=== PATIENT | male | born 1985 | race African-American/Black ===

== ENCOUNTER 2024-02-26 10:02 | Emergency (ER) | payer MEDICAID, SELFPAY ==
--- NOTE | 2024-02-26 10:08 | ECG_ITS ---
Test Reason : chest pain Blood Pressure : / mmHG Vent. Rate : 054 BPM Atrial Rate : 054 BPM P-R Int : 138 ms QRS Dur : 084 ms QT Int : 414 ms P-R-T Axes : 069 047 050 degrees QTc Int : 392 ms Sinus bradycardia Otherwise normal ECG No previous ECGs available Referred By: Generic ED Physician Electronically Signed By:VICKY NUÑEZ
[2024-02-26 10:19] VITALS: BP 135/91; PULSE 61; RESP 16; TEMP 36.7; O2SAT 98; BMI 26.2
[2024-02-26 11:09] LABS: MANUAL DIFF FLAG NO
[2024-02-26 11:12] LABS: Basophils Percent Auto 0.6 % (0-2); Eosinophils Percent Auto 0.1 % (0-4); Hematocrit 39.6 % (42.0-52.0); Hemoglobin 14.7 g/dl (14.0-18.0); Imm Gran Abs Auto 0.01 X10*3/uL (0.00-0.03); Imm Gran Pct Auto 0.1 % (0.0-0.4); Lymphocytes Absolute Auto 1.3 X10*3/uL (1.2-4.9); Lymphocytes Percent Auto 18.1 % (20-40); Mean Corpuscular HGB Conc 37.1 g/dl (31.0-36.0); Mean Corpuscular Hemoglobin 29.5 pg (27.0-33.0); Mean Corpuscular Volume 79.5 fL (80.0-98.0); Mean Platelet Volume 9.7 fL (9.4-12.4); Monocytes Absolute Auto 0.4 X10*3/uL (0.1-1.2); Monocytes Percent Auto 5.9 % (2-11); Neutrophils Absolute Auto 5.3 x10*3/uL (2.0-8.3); Neutrophils Percent Auto 75.2 % (45-73); Platelet Count 212 X10*3/uL (160-400); Red Blood Count 4.98 X10*6/uL (4.60-5.80); Red Cell Distribution Width 13.2 % (11.0-16.0)
--- NOTE | 2024-02-26 11:19 | ED.CHESTPAIN ---
HPI - Chest Pain General Chief Complaint: Chest Pain Stated Complaint: abd pain-cp Time Seen by Provider: 02/26/24 11:16 Source: patient Mode of arrival: ambulatory Limitations: no limitations History of Present Illness ED Provider: Collin SOTO narrative: Patient is a 38-year-old male with history of alcohol use disorder, asthma presenting to the emergency department requesting assistance with detox from alcohol. States that he had been sober for 120 days, but began drinking alcohol daily around 1-1.5 weeks ago. Reports he was recently at [facility] rehab and would like to return there. Denies history of withdrawal seizures. Last drink was a nip around 9am. States has regularly been drinking 1-2 sleeves of nips daily. States he currently has sweats/chills but denies any other complaints. Denies any chest or abdominal pain. Denies other drug use. Denies any falls or other recent trauma. Denies SI or HI. MD complaint: other Treatment prior to arrival: none Related Data Allergies Allergy/AdvReac Type Severity Reaction Status Date / Time No Known Allergies Allergy Verified 02/26/24 10:21 Review of Systems Review of Systems: As per hPI. Yes all other systems are reviewed and are negative Constitutional: Constitutional: Reports as per HPI [facility] Social History Social History Alcohol intake: former Smoked in Last 30 Days: Yes Use of substances other than those prescribed or required for medical reasons: Yes Substance Use Type: Marijuana Substance Use Frequency: Occasionally Advance Directives: No Advance Directives Information Provided: No Do you have a plan to hurt others: No Plan Physical Exam Vital Signs: Vital Signs: Last Vital Signs Temp 98.1 F 02/26/24 10:19 Pulse 55 02/26/24 12:31 Resp 21 H 02/26/24 12:31 BP 124/72 02/26/24 12:31 Pulse Ox 97 02/26/24 12:31 O2 Del Method Room Air 02/26/24 12:31 BMI result Body Mass Index 26.2 Vital signs have been reviewed and appear to be correct. Blood pressure normal. Heart rate normal. Respiratory rate normal. Temperature normal. Oxygen saturation normal. Const: General: cooperative, healthy appearing and no acute distress Orientation/consciousness: oriented to person, oriented to place, oriented to time and patient oriented x3 Limitations: no limitations HEENT: Head: Yes normocephalic and Yes atraumatic Ears: external ears normal General nose exam: Normal external nose present Face and sinus: Yes face symmetric Mouth: oropharynx normal and moist mucous membranes Throat: Yes uvula midline Eyes: Pupils: Equal, round and reactive pupils present Neck: Neck: Yes normal visual inspection and Yes supple Resp: Effort & Inspection: normal respiratory effort and able to speak in complete sentences Auscultation: clear to auscultation bilaterally Cardio: Rate: regular rate Rhythm: regular rhythm Heart sounds: S1 normal heart sound present and S2 normal heart sound present GI: Palpation (GI): Soft to palpation and nontender Auscultation: normoactive bowel sounds : General: Yes no CVA tenderness Back/Spine/Pelvis: Back: no CVA tenderness Skin: General skin exam: elasticity normal and turgor normal Neuro: General: oriented to person, oriented to place, oriented to time, patient oriented x3, tone normal, moves all extremities, Normal light touch and pain sensation, no focal motor deficits, CN's II-XI intact bilaterally and deep tendon reflexes 2+ bilaterally Cranial nerves: Yes Equal, round and reactive pupils present Cognition (Neuro): normal cognition Motor exam (neuro): 5/5 motor strength present throughout and no tremor noted Extrem: General: Yes full ROM, Yes no pedal edema and Yes no calf tenderness Psych: Mental Status: mental status grossly normal Affect: normal affect Thought process: Normal thought process present Medical Decision Making Medical Decision Making [facility] Narrative: Patient is a 38-year-old male with history of alcohol use disorder, asthma presenting to the emergency department requesting assistance with detox from alcohol. On exam patient is awake, A+Ox3, VS WNL, afebrile, normal neurological exam without focal deficits, physical exam findings as above. Given reported symptoms and physical exam findings, initial differential includes alcohol use disorder, alcohol withdrawal, gastritis. Unlikely ACS. Labs notable for no leukocytosis, no anemia, negative troponin. EKG shows sinus bradycardia at rate of 54, patient reports history of bradycardia. Urine drug screen unremarkable. Patient seen by addiction medicine RN, will be discharged home to follow up with [facility] for detox. Differential Diagnosis Differential Diagnoses: The differential diagnosis associated with the presentation includes As per [facility] Admission/Observation Consideration of admission/observation: Escalation of care including admission/observation considered Consult Healthcare Provider Management of the patient was discussed with: [facility] Manager Lab Data [facility] Lab Attestation statement: I reviewed the patient's lab results. As per MDM 02/26/24 11:05 02/26/24 11:05 Labs: Lab Results 02/26/24 02/26/24 Range/Units 11:05 12:43 WBC 7.0 (4.8-10.8) X10*3/uL RBC 4.98 (4.60-5.80) X10*6/uL Hgb 14.7 (14.0-18.0) g/dl Hct 39.6 L (42.0-52.0) % MCV 79.5 L (80.0-98.0) fL MCH 29.5 (27.0-33.0) pg MCHC 37.1 H (31.0-36.0) g/dl RDW 13.2 (11.0-16.0) % Plt Count 212 (160-400) X10*3/uL MPV 9.7 (9.4-12.4) fL Immature Gran % (Auto) 0.1 (0.0-0.4) % Neut % (Auto) 75.2 H (45-73) % Lymph % (Auto) 18.1 L (20-40) % [place] % (Auto) 5.9 (2-11) % Eos % (Auto) 0.1 (0-4) % Baso % (Auto) 0.6 (0-2) % Lymph # (Auto) 1.3 (1.2-4.9) X10*3/uL [place] # (Auto) 0.4 (0.1-1.2) X10*3/uL Eos # (Auto) 0.0 (0.0-0.4) X10*3/uL Baso # (Auto) 0.0 (0.0-0.2) X10*3/uL Abs Immat Gran (auto) 0.01 (0.00-0.03) X10*3/uL Absolute Neuts (auto) 5.3 (2.0-8.3) x10*3/uL Absolute Nucleated RBC 0.000 (0.0-0.012) X10*3/uL Nucleated RBC % (auto) 0.0 (0.0-0.2) /100WBC Sodium 140 (135-145) mmol/L Potassium 4.1 (3.3-5.1) mmol/L Chloride 107 (96-108) mmol/L Carbon Dioxide 26 (22-29) mmol/L Anion Gap 11 L (12-20) BUN 16 (9-16) mg/dL Creatinine 0.84 (0.5-1.4) mg/dL Estim Creat Clear Calc 117.6 Estimated GFR > 60 Random Glucose 96 (60-115) mg/dL Calcium 9.6 (8.4-10.2) mg/dL Magnesium 1.7 (1.6-2.6) mg/dL Total Bilirubin 0.5 (0.0-1.0) mg/dL Direct Bilirubin 0.2 (0.0-0.5) mg/dL AST 26 (5-37) U/L ALT 51 H (0-40) U/L Alkaline Phosphatase 93 (39-117) U/L Troponin I High Sens < 2.7 (<3.5-35.0) ng/L Total Protein 7.1 (6.5-8.0) g/dL Albumin 4.4 (3.5-5.0) g/dL Urine Color Straw Urine Appearance Clear Urine pH 8.0 (5.0-9.0) Ur Specific [place] 1.015 (1.005-1.025) Urine Protein Trace (Neg-Trace) mg/dL Urine Glucose (UA) Negative (Negative) mg/dL Urine Ketones Negative (Negative) mg/dL Urine Blood Negative (Negative) Urine Nitrite Negative (Negative) Ur Leukocyte Esterase Negative (Negative) Urine Opiates Screen Not Detected (Not Detect) Ur Buprenorphine Scrn Not Detected (Not Detect) ng/mL Ur Oxycodone Screen Not Detected (Not Detect) ng/mL Urine Methadone Screen Not Detected (Not Detect) ng/mL Urine Fentanyl Screen Not Detected (Not Detect) Ur Barbiturates Screen Not Detected (Not Detect) Ur Phencyclidine Scrn Not Detected (Not Detect) Ur Amphetamines Screen Not Detected (Not Detect) U Benzodiazepines Scrn Not Detected (Not Detect) Urine Cocaine Screen Not Detected (Not Detect) U Marijuana (THC) Screen Not Detected (Not Detect) Ethyl Alcohol < 10 mg/dL External Record Review External record reviewed: Inpatient record, Office record and Outpatient record Discharge Plan Discharge Clinical Impression: Alcohol use disorder Patient Disposition: Home, Self-Care Instructions: At-Risk Alcohol Use (ED), Alcohol Withdrawal (DC) Additional Instructions: You were evaluated in the emergency department today for alcohol use disorder. You met with the addiction medicine nurse who recommends following up with [facility] at home. Return to the emergency department with new or worsening symptoms. Print Language: Lithuanian
[2024-02-26 11:26] LABS: Anion Gap 11 (12-20); Blood Urea Nitrogen 16 mg/dL (9-16); Calcium 9.6 mg/dL (8.4-10.2); Carbon Dioxide 26 mmol/L (22-29); Chloride 107 mmol/L (96-108); Creatinine Clr Calc Pharmacy 117.6; Estimated Glomerular Filt Rate > 60; Glucose Random 96 mg/dL (60-115); Potassium 4.1 mmol/L (3.3-5.1); Sodium 140 mmol/L (135-145)
--- NOTE | 2024-02-26 11:26 | PC.NURSE ---
lab called to add on blood work
[2024-02-26 11:36] LABS: Troponin-I High Sensitivity < 2.7 ng/L (<3.5-35.0)
--- NOTE | 2024-02-26 11:52 | PC.NURSE ---
patient presents to ED through external [facility] with cc of alcohol withdrawal. patient states he was sober for 120 days, but recently relapsed, felt himself going into withdrawal and drank 1 nip to prevent symptoms. patient presents with some epigastric pain but denies nausea or vomiting currently. denies chest pain or shortness of breath, states he went to [facility] before and it helped him a lot, he is requesting to speak with addiction medicine. he denies any medical admissions for alcohol withdrawal. denies seizures or hallucinations. CIWA completed, patient not scoring anything at this time. blood work obtained in triage, patient placed on cardiac cath technician, is alert and oriented and answering questions appropriately. calm and cooperative and agreeable to plan of care at this time
[2024-02-26 11:56] LABS: Alanine Aminotransferase 51 U/L (0-40); Albumin Level 4.4 g/dL (3.5-5.0); Alkaline Phosphatase 93 U/L (39-117); Aspartate Amino Transferase 26 U/L (5-37); Bilirubin Direct 0.2 mg/dL (0.0-0.5); Bilirubin Total 0.5 mg/dL (0.0-1.0); Total Protein 7.1 g/dL (6.5-8.0)
[2024-02-26 12:31] VITALS: BP 124/72; PULSE 55; RESP 21; O2SAT 97
[2024-02-26 13:03] LABS: Appearance Urine Clear; Color Urine Straw; Glucose Urine UA Negative (Negative); Leukocyte Esterase Urine Negative (Negative); Nitrite Urine Negative (Negative); Specific Gravity - Urine 1.015 (1.005-1.025); Urine Blood Negative (Negative); Urine Ketones Negative (Negative); Urine Protein Trace mg/dL (Neg-Trace)
[2024-02-26 13:06] LABS: Amphetamine Screen Urine Not Detected (Not Detect); Barbiturates, Urine Not Detected (Not Detect); Benzodiazepines Screen Urine Not Detected (Not Detect); Buprenorphine Scr Not Detected (Not Detect); Cannabinoid Screen Urine Not Detected (Not Detect); Cocaine Screen Urine Not Detected (Not Detect); Fentanyl, urine Not Detected (Not Detect); Methadone Screen, Urine Not Detected (Not Detect); Opiate Screen Urine Not Detected (Not Detect); Oxycodone Screen Urine Not Detected (Not Detect); Phencyclidine Screen Urine Not Detected (Not Detect)
[2024-02-26 13:13] LABS: Ethanol < 10 mg/dL; Magnesium 1.7 mg/dL (1.6-2.6)
[2024-02-26 13:30] VITALS: BP 135/78; PULSE 56; RESP 18; TEMP 36.6; O2SAT 99
[2024-02-26 13:36] LABS: Influenza A PCR NEGATIVE (Negative); Influenza B PCR NEGATIVE (Negative); Resp Syncy Virus RNA Qual PCR NEGATIVE (Negative); SARS COV2 PCR INHOUSE NEGATIVE (Negative)
[2024-02-26 13:44] VITALS: BP 135/78; PULSE 56; RESP 18; TEMP 36.6; O2SAT 99
[2024-02-26 13:47] VITALS: BP 135/78; PULSE 56; RESP 18; TEMP 36.6; O2SAT 99
--- NOTE | 2024-02-26 14:49 | MHC.RECOVRN ---
Met with pt in ED19 after pt expressed interest in ATS. Pt sitting in bed, awake, alert, easily engages in conversation. Pt reports alcohol use, 3 sleeves daily x 2 weeks, last drink this morning around 9AM. Pt currently appears comfortable. Pt reports prior to 2 weeks ago he had been in recovery x 120 days after completing [facility]. Pt would like to return to [facility]. Pt is not interested in other facilities. T/w called [facility], no bed availability today. Discussed with pt, pt would like to discharge and continue calling [facility] from home. Denies other questions or concerns for t/w. Discussed with pts RN and provider.
== END 2024-02-26 13:47 | disposition home or self-care (01) ==
PROVIDERS: Registered Nurse Emergency; Emergency Provider Student in an Organized Health Care Education/Training Program
DX: R07.89 Other chest pain (principal); F10.10 Alcohol abuse, uncomplicated; Y90.0 Blood alcohol level of less than 20 mg/100 ml; Z51.81 Encounter for therapeutic drug level monitoring; Z79.899 Other long term (current) drug therapy; Z03.818 Encounter for observation for suspected exposure to other biological agents ruled out
CPT/HCPCS: 0241U; 36415; 80048; 80076; 80307; 81003; 83735; 84484; 85025; 93005; 99284; 99285

== ENCOUNTER 2025-04-20 12:58 | Outpatient (REF) | payer MEDICAID, SELFPAY ==
[2025-04-20 17:48] LABS: MANUAL DIFF FLAG NO
[2025-04-20 18:05] LABS: Hematocrit 39.9 % (42.0-52.0); Hemoglobin 14.6 g/dl (14.0-18.0); Imm Gran Abs Auto 0.04 X10*3/uL (0.00-0.03); Imm Gran Pct Auto 0.4 % (0.0-0.4); Lymphocytes Absolute Auto 1.7 X10*3/uL (1.2-4.9); Mean Corpuscular HGB Conc 36.6 g/dl (31.0-36.0); Mean Corpuscular Hemoglobin 29.7 pg (27.0-33.0); Mean Corpuscular Volume 81.1 fL (80.0-98.0); NRBC Abs Auto 0.000 X10*3/uL (0.0-0.012); NRBC Pct Auto 0.0 /100WBC (0.0-0.2); Platelet Count 248 X10*3/uL (160-400); Red Blood Count 4.92 X10*6/uL (4.60-5.80); White Blood Count 9.8 X10*3/uL (4.8-10.8)
[2025-04-20 18:25] LABS: Appearance Urine Clear; Glucose Urine UA Negative (Negative); PH 6.5 (5.0-9.0); Specific Gravity - Urine 1.020 (1.005-1.025); UMIC TRIGGER UACC YES
[2025-04-20 18:32] LABS: Alanine Aminotransferase 31 U/L (0-40); Albumin Level 4.8 g/dL (3.5-5.0); Alkaline Phosphatase 81 U/L (39-117); Anion Gap 10 (12-20); Aspartate Amino Transferase 21 U/L (5-37); Blood Urea Nitrogen 16 mg/dL (9-16); Calcium 9.4 mg/dL (8.4-10.2); Carbon Dioxide 26 mmol/L (22-29); Chloride 108 mmol/L (96-108); Cholesterol 170 mg/dL (<200); Estimated Glomerular Filt Rate > 60; HDL Cholesterol 54 mg/dL (>40); Magnesium 1.9 mg/dL (1.6-2.6); Potassium 4.0 mmol/L (3.3-5.1); Sodium 140 mmol/L (135-145); Total Protein 7.0 g/dL (6.5-8.0); Triglycerides 102 mg/dL (<150)
[2025-04-20 19:00] LABS: Folate 9.5 ng/mL (> or = 4.0); Vitamin B12 484 pg/mL (200-900)
[2025-04-21 04:44] LABS: Syphilis Screen Nonreactive (Nonreactive)
[2025-04-21 05:22] LABS: HBS Num1 30.87 mIU/mL (0-7.99); HBsAGNum1 0.45 S/CO (0.00-0.99); HIV Num 1 0.06 S/CO (0.00-0.99); Hepatitis B Surface Antigen Negative (Negative); ~HepC Num1 0.07 S/CO (0.00-0.79); ~Hepatitis B Surface Antibody REACTIVE (Nonreactive); ~Hepatitis C Antibody Nonreactive (Nonreactive)
[2025-04-21 05:49] LABS: CT PCR Urine NOT DETECTED (Not Detect.); NG PCR Urine NOT DETECTED (Not Detect.)
[2025-04-25 14:48] LABS: VITAMIN D (1,25 OH) D3 40 pg/mL; Vit D (1,25-Dihydroxy) Total 40 pg/mL (18-72); Vitamin D (1,25 OH) D2 <8 pg/mL
== END 2025-04-20 12:59 | disposition home or self-care (01) ==
LOC: HO.HKASLDS 12:58
PROVIDERS: PCP Student in an Organized Health Care Education/Training Program; Visit Provider Student in an Organized Health Care Education/Training Program
DX: Z13.9 Encounter for screening, unspecified (principal); J45.909 Unspecified asthma, uncomplicated; F41.9 Anxiety disorder, unspecified; G47.9 Sleep disorder, unspecified; F10.10 Alcohol abuse, uncomplicated; F19.90 Other psychoactive substance use, unspecified, uncomplicated; Z87.898 Personal history of other specified conditions; Z79.899 Other long term (current) drug therapy
CPT/HCPCS: 80053; 80061; 81001; 82607; 82652; 82746; 83036; 83735; 84425; 84443; 85025; 86706; 86780; 86803; 87340; 87389; 87491; 87591; 96127; 99202

== ENCOUNTER 2025-04-20 12:58 | Outpatient (AMB) | payer MEDICARE, MEDICAID, SELFPAY ==
--- NOTE | 2025-04-20 13:02 | A.OFFPC_ITS ---
Vital Signs 04/20/25 13:12 Height 5 ft 9.25 in Weight 171 lb 4 oz BMI 25.1 BP 105/65 Blood Pressure Location Rt brachial Position Sitting Respiration 18 Pulse 62 Pulse Source Monitor Temp 98 F Temp Source Oral Pulse Oximetry (%) 97 Oxygen Delivery Method Room Air Intake Visit Reasons: [employer] - Est Care/?ETOH Abuse Intake Note: est care Manager Dialysis Required: No Accompanied by: Self / Same As Patient Allergies No Known Allergies Allergy (Verified 04/20/25 13:05) Tobacco use date assessed: 04/20/25 Dental Screening Dental Screen Date: 04/20/25 Did you have a dental visit in the last 12 months?: No Did you have a dental problem in the last 6 months where you did not have access to dental care?: Yes Was dental information given to patient?: No HPI HPI Comments History of Present Illness Details History of Present Illness The patient is a 39 year old individual presenting for follow-up regarding a recent alcohol relapse. Alcohol Use Disorder: The patient reports a recent relapse of alcohol use, which prompted the patient to self-admit to [facility]. During detox, the patient received valium and clonidine. The patient was transferred to [facility] but left against medical advice after six days due to significant anxiety and feeling that the staff was not helping. At the height of the recent drinking period, consumption was reported as two to three sleeves (20-30 nips) and a 12-pack of beer daily. The patient has 11.5 months of prior sobriety and has re-engaged in recovery by setting up an intensive outpatient program (IOP) with [facility], a psychiatry appointment, therapy, and attending Alcoholics Anonymous (AA) meetings. Anxiety and Insomnia: The patient reports significant anxiety, which precipitated leaving the detox facility. The patient has been taking a stepson's clonidine, which helps manage the anxiety. Sleep is poor and described as up and down, which the patient attributes to anxiety. Asthma: The patient has a history of asthma and uses albuterol as needed when playing sports, but does not currently possess an inhaler. History of Seizures: The patient reports a history of seizures at age 10 or 11, with no recurrence since childhood. Substance Use History: The patient smokes about a half pack to a full pack of [place] cigarettes daily and has done so for 15-20 years. The patient also reports use of marijuana and cocaine; cocaine use is described as occasional to balance out heavy drinking, and the patient denies an addiction to it. Surgical History: - No surgical history reported. Medications: - Clonidine 0.1 mg, taken for anxiety by cutting a 0.2 mg tablet in half. - Albuterol inhaler, as needed for asthm a (patient does not currently have one). Social History: - Substance Use: The patient is in recov riley from alcohol use disorder following a recent relapse after 11.5 months of sobriety. - At its peak, alcohol consumption was 2 0-30 nips plus a 12-pack of beer daily. - The patient smokes 0.5-1 pack of cigar ettes per day for 15-20 years and is considering quitting. - The patient reports using marijuana an d cocaine, with cocaine use linked to heavy drinking episodes. - Employment: The patient is currently u nemployed after losing a job at [employer] due to the relapse but is waiting for a start date with a new agency. - Recovery & Support: The patient attend s AA meetings and has independently arranged for an intensive outpatient program (IOP), therapy, and a psychiatric appointment with [facility]. - Family & Motivation: The patient has meme vee and states that being present for them is a major motivator. - Additional motivation comes from the p greg's girlfriend, who was recently diagnosed with breast cancer. Family History: - Patient's girlfriend was recently diag nosed with breast cancer. - Patient's girlfriend's father has pros rothman and lung cancer. Past Medical History - History of seizures as a child (age 10 or 11). - Asthma, triggered by sports. - Alcohol Use Disorder with recent relap se. - History of polysubstance use including tobacco, marijuana, and cocaine. - Recent admission to [facility] and then [facility], from which the patient was discharged against medical advice. - Allergies: No known allergies. Health Maintenance - Discussed smoking cessation, to be add ressed further when the patient is ready. - Comprehensive labs were ordered to est ablish a baseline of health, including a complete blood count, comprehensive metabolic panel, hemoglobin A1c, hepatitis B and C, HIV, lipid panel, magnesium, syphilis, thyroid function, urinalysis, vitamin B12, folate, vitamin D, and thiamine (vitamin B1). [facility] Medical History (Updated 04/20/25 @ 13:43 by Cyril Cheney MD) Substance use disorder History of seizures Sleep disorder Anxiety Alcohol abuse Asthma Family History (Updated 04/20/25 @ 13:11 by Lawrence Quiroz [facility]) Father FH: mental illness Substance abuse Diabetes Brother FH: mental illness Maternal Uncle FH: mental illness Substance abuse Diabetes Paternal Uncle FH: mental illness Substance abuse Diabetes Maternal Grandmother Hypertension Diabetes Paternal Grandmother Hypertension Cancer Diabetes Social History (Updated 04/20/25 @ 13:12 by Lawrence Quiroz [facility]) Housing: Apartment Alcohol intake: former Patient Tobacco Use Status: Current everyday Tobacco user Cigarette Packs Per Day: 0.5 e-Cigarette/Vaping Use: Never Used Substance Use Type: Marijuana service: No Current occupational status: unemployed Cognitive needs: No Hearing needs: No Vision needs: No Questionnaire PHQ-9 Over the last 2 weeks, how often have you been bothered by any of the following problems? 1. Little interest or pleasure in doing things: several days 2. Feeling down, depressed, or hopeless: several days 3. Trouble falling or staying asleep, or sleeping too much: several days 4. Feeling tired or having little energy: several days 5. Poor appetite or overeating: several days 6. Feeling bad about yourself - or that you are a failure or have let yourself or your family down: several days 7. Trouble concentrating on things, such as reading the newspaper or watching television: several days 8. Moving or speaking so slowly that other people could have noticed. Or the opposite - being so fidgety or restless that you have been moving around a lot more than usual: not at all 9. Thoughts that you would be better off or of hurting yourself in some way: not at all Total score: 7 Depression Screening Interpretation: Negative Depression Screening Done: Yes Source: Developed by Drs. Aayush De Jesus, Cynthia Castellon, Royal Basurto and colleagues, with an educational kaia from [employer]. Thrive Questionnaire Date Thrive assessed: 04/20/25 I am a: Patient What is your living situation today?: I have a steady place to live Within the past 12 months, did the food you bought not last and you didn't have the money to get more?: Never true Within the past 12 months, did you worry whether your food would run out before you got money to buy more?: Never true Do you have trouble paying for medicines?: Yes Do you have trouble getting transportation to medical appointments?: No Do you have trouble paying your heating and electricity bill?: I choose not to answer this question Do you have trouble taking care of your child, family member or friend?: No Are you currently unemployed and looking for a job?: Yes Are you interested in more education?: No Please select the resources that you would like help with: Paying for medicine and Daily support Currently or been in a relationship where the following occur: No concerns reported THRIVE Score: 0 AUDIT C Alcohol Use Questionnaire (AUDIT-C) 1. How often do you have a drink containing alcohol?: 4 or more times a week 2. How many drinks containing alcohol do you have on a typical day when you are drinking?: 10 or more 3. How often do you have six or more drinks on one occasion?: Daily or almost daily Total Score: 12 TATIANA-7 AMB Questionnaire TATIANA-7 Date TATIANA - 7 assessed: 04/20/25 Feeling nervous, anxious, or on edge: 1 = Several days Not being able to stop or control worryin = Several days Worrying too much about different things: 1 = Several days Trouble relaxin = Several days Being so restless that it is hard to sit still: 1 = Several days Becoming easily annoyed or irritable: 0 = Not at all Feeling afraid as if something awful might happen: 0 = Not at all Total TATIANA-7 score (0-4 normal; 5-9 mild; 10-14 moderate; 15-21 severe): 5 Source: Developed by Drs. Aayush De Jesus, Cynthia Castellon, Royal Basurto and colleagues, with an educational kaia from [employer]. TATIANA-7 Assessment Billing TATIANA-7 Assessment Tool: TATIANA-7 Assessment 93001 Review of Systems Narrative Review of Systems - Psychiatric: Reports significant anxiety and insomnia described as being up and down at night. - Respiratory: Reports needing an albuterol inhaler when playing sports. - Musculoskeletal: Reports lower back pain, which the patient attributes to a rough bed during detox. - Integumentary: Reports having white spots on the skin. - : Endorses normal urination. - GI: Endorses normal bowel movements. 10-point ROS reviewed and negative except as noted in HPI Physical exam (Primary Care) Vital Signs: Last Vital Signs Temp 98 F 04/20/25 13:12 Pulse 62 04/20/25 13:12 Resp 18 04/20/25 13:12 BP 105/65 04/20/25 13:12 Pulse Ox 97 04/20/25 13:12 Oxygen Delivery Method Room Air 04/20/25 13:12 BMI result Body Mass Index 25.1 Tobacco/Smoking Status: Tobacco use Status Tobacco use date assessed 04/20/25 04/20/25 13:14 Patient Tobacco Use Status Current everyday Tobacco 04/20/25 13:14 e-Cigarette/Vaping Use Never Used 04/20/25 13:14 PHQ-9: PHQ-9 Score PHQ-9: Total score 7 04/20/25 13:18 Depression Screening Interpretation: Negative Thrive Assessment: Date of Thrive Assessment Date Thrive assessed 04/20/25 04/20/25 13:05 Currently or been in a relationship where the following occur: No concerns reported Narrative Physical Exam General: Well-appearing, in no acute distress. Vital signs: Within normal limits. HEENT: Normocephalic, atraumatic. PERRLA, EOMI. Conjunctiva clear, sclera anicteric. Oropharynx clear, mucous membranes moist. TMs intact bilaterally. Neck: Supple, no lymphadenopathy, no thyromegaly, no JVD or carotid bruits. Cardiovascular: RRR, normal S1/S2, no murmurs, rubs, or gallops. Peripheral pulses 2+ and symmetric. No edema. Respiratory: Lungs clear to auscultation bilaterally, no wheezes, rales, or rhonchi. Normal effort. Abdomen: Soft, non-tender, non-distended. Normoactive bowel sounds. No hepatosplenomegaly, no masses. MSK: Full range of motion, no joint swelling or deformity. Normal gait. Noted scar tissue over the preemie and a little white spot on the back. Skin: Warm, dry, intact. No rashes, lesions, or pallor. Noted a little white spot on the back. Neuro: Alert and oriented x3. Cranial nerves II-XII intact. Strength 5/5 throughout. Sensation intact. Reflexes 2+ symmetric. Normal coordination and gait. Psych: Appropriate mood and affect. Normal judgment and insight. Reports anxiety and sleep disturbances, for which hydroxyzine 50 mg at bedtime is prescribed. Coding Level of Care Code New Pt Level 4 (35700) Diagnoses Alcohol use disorder F10.90 Alcohol abuse F10.10 Asthma J45.909 Anxiety F41.9 Sleep disorder G47.9 History of seizures Z87.898 Substance use disorder F19.90 Additional Codes TATIANA-7 Assessment Billing - TATIANA-7 Assessment Tool: TATIANA-7 Assessment 87054 ([id number]) Assessment & Plan Assessment & Plan (1) Alcohol use disorder: Code(s): F10.90 - Alcohol use, unspecified, uncomplicated Category: Medical (2) Alcohol abuse: Code(s): F10.10 - Alcohol abuse, uncomplicated Category: Social Hx (3) Asthma: Code(s): J45.909 - Unspecified asthma, uncomplicated Category: Medical (4) Anxiety: Code(s): F41.9 - Anxiety disorder, unspecified Category: Medical (5) Sleep disorder: Code(s): G47.9 - Sleep disorder, unspecified Category: Medical (6) History of seizures: Code(s): Z87.898 - Personal history of other specified conditions Category: Medical (7) Substance use disorder: Code(s): F19.90 - Other psychoactive substance use, unspecified, uncomplicated Category: Medical Plan Consent Patient was informed and verbally consented to the use of an ambient scribe for clinic note documentation during this visit. Plan 1. Alcohol Use Disorder - The patient has already taken proactive steps by enrolling in an IOP at [facility], scheduling therapy, and attending AA meetings. - A referral was provided to [facility] for additional psychiatric support. - Ordered a comprehensive lab panel including CBC, CMP, HbA1c, hepatitis panel, HIV, lipids, magnesium, RPR, TSH, urinalysis, vitamin B12, folate, vitamin D, and thiamine to assess overall health and screen for complications of alcohol use. - Plan to follow up in two weeks to review lab results and continue care coordination. 2. Anxiety And Insomnia - The patient will continue taking clonidine 0.1 mg as it is reported to be helpful for anxiety. - Prescribed hydroxyzine 50 mg at bedtime as needed for sleep and anxiety. - Referred to [facility] for formal psychiatric evaluation and management. 3. Asthma - A prescription for an albuterol inhaler was sent to the patient's pharmacy for as-needed use with exercise. 4. Tobacco Use Disorder - Discussed smoking cessation and will provide assistance when the patient is ready to quit. 5. Low Back Pain - Advised stretching for symptomatic relief. Discussion Notes I met with the patient, a 39-year-old individual, who presented for care after a recent alcohol relapse. I noted the patient appears focused and has independently taken significant steps toward recovery, including arranging IOP, therapy, and attending AA. We discussed the co-occurring anxiety and insomnia, and I prescribed hydroxyzine 50 mg for nighttime use to help with sleep. I also provided a referral to [facility] for more specialized psychiatric care, encouraging the patient to call them for an appointment. To address the patient's asthma, I sent a prescription for an albuterol inhaler. I explained the rationale for ordering a comprehensive set of labs to get a full picture of the patient's health. I expressed my support and willingness to provide resources as the patient's family physician. We scheduled a follow-up appointment in two weeks to review the lab results and continue our discussion. Patient Instructions - You have been prescribed hydroxyzine 50 mg to be taken at bedtime as needed to help you sleep. - A prescription for an albuterol inhaler has been sent to [facility] for you to use as needed when you play sports. - Please call [facility] at [phone] to schedule an appointment for therapy and psychiatric care. - Please go to the lab to have your blood drawn for the tests that were ordered. - For your low back pain, try to do regular stretching. - Continue with your recovery plan, including attending your IOP at [facility] and AA meetings. - Come back for a follow-up visit in two weeks to discuss your lab results. Medical Decision Making The patient is a 39-year-old individual presenting after a relapse of severe alcohol use disorder. Despite the relapse, the patient demonstrates strong motivation and has proactively re-engaged with multiple recovery resources, including an IOP, therapy, and AA. The primary goals of this visit are to support sobriety efforts, manage acute co-morbid symptoms of anxiety and insomnia, and establish a baseline of the patient's overall health. The patient's self-reported use of clonidine for anxiety appears effective, but sleep remains disturbed. Therefore, hydroxyzine 50 mg was prescribed as a safe, non-addictive option for managing insomnia and providing anxiolytic effects. A referral to a dedicated psychiatric group was provided for more robust, long- term management of mental health needs. Given the history of heavy alcohol use, a comprehensive lab panel, including thiamine and folate, is crucial to screen for nutritional deficiencies and assess liver and kidney function. A prescription for an albuterol inhaler was provided for the patient's known exercise-induced asthma. A follow-up in two weeks is scheduled to review these results and adjust the care plan accordingly. Total Time Statement 30 min Total time spent caring for the patient today includes pre-visit chart review, documentation, review of laboratory and diagnostic imaging results, medication reconciliation, medically necessary evaluation, counseling on diagnoses, care coordination, ordering appropriate tests and medications, review of tests performed by other providers, reporting test results to the patient, and communication with other healthcare providers. Orders: Orders Syphilis Screen Today Z13.9 - Encounter for screening, unspecified Comprehensive Met. Panel Today Z13.9 - Encounter for screening, unspecified Hepatitis C Antibody Today Z13.9 - Encounter for screening, unspecified TSH reflex Free T4 Today Z13.9 - Encounter for screening, unspecified CT NG by PCR Urine Today Z13.9 - Encounter for screening, unspecified Hemoglobin A1c Today Z13.9 - Encounter for screening, unspecified Vitamin D 1,25 dihydroxy Today Z13.9 - Encounter for screening, unspecified Hepatitis B Surface Antibody Today Z13.9 - Encounter for screening, unspecified Vitamin B1 Today Z13.9 - Encounter for screening, unspecified Complete Blood Count Auto Diff Today Z13.9 - Encounter for screening, unspecified Hepatitis B Surface Antigen Today Z13.9 - Encounter for screening, unspecified HIV Ab/Ag Today Z13.9 - Encounter for screening, unspecified UA CC w/rflx Micro + Cult Today Z13.9 - Encounter for screening, unspecified AMB Hemoglobin A1c Today Z13.9 - Encounter for screening, unspecified Lipid Panel Today Z13.9 - Encounter for screening, unspecified Vitamin B12 and Folate Today Z13.9 - Encounter for screening, unspecified Magnesium Today Z13.9 - Encounter for screening, unspecified Medications: New hydroxyzine HCl 50 mg PO BEDTIME 30 tabs 0RF albuterol sulfate 90 mcg/actuation (Ventolin HFA) 2 puffs inhalation Q6H PRN 8.5 grams 0RF shortness of breath or wheezing J45.909 - Unspecified asthma, uncomplicated
[2025-04-20 13:12] VITALS: BP 105/65; PULSE 62; RESP 18; TEMP 36.6; O2SAT 97; BMI 25.1
--- OUTSIDE RECORDS SUMMARY | 2025-04-20 16:01 | XMS_ITS | Clinical Summary ---
Author Organization [facility] Address [address] [place] [address] Phone Care Team Providers Care Purifying Plant Operator Name Role Phone Physician, No Pcp Primary Care Provider Unavaila ble Allergies No known active allergies Medications methocarbamoL (ROBAXIN) 750 mg tablet Take 1 tablet (750 mg total) by mouth 4 (four) times a day for 10 days. 40 each 11/21/2024 Active Encounters Date Type Department Care Team Description 04/04/2025 6:49 PM EST - 04/05/2025 3:06 AM EST Emergency [facility] Emergency [address] [place] [address] Noreen Barros MD Acute alcohol intoxication, uncomplicated ([facility] V24) (Primary Dx) Discharge Disposition: Home or Self Care from Last 3 Months Medical History Medical History Date Comments Asthma DX:Asthma Seizure ([facility] V24, [facility] V28) DX:Seizure ([facility]);COMMENT:1 episode at 9 years of age Social History Tobacco Use Types Packs/Day Years Used Date Smoking Tobacco: Unknown Cigarettes Tobacco Cessation:Counseling Given: Not Answered Alcohol Use Standard Drinks/Week Comments Yes 0 (1 standard drink = 0.6 oz pur e alcohol) Sex and Gender Information Value Date Recorded Sex Assigned at Not on file Legal Sex Male 10:05 AM EST Gender Identity Not on file Sexual Orientation Not on file Obstetrics History Last Filed Vital Signs Vital Sign Reading Time Taken Comments Blood Pressure 137/84 04/04/2025 7:12 PM EST Pulse 71 04/04/2025 7:12 PM EST Temperature 36.9 C (98.4 F) 04/04/2025 7:12 PM EST Respiratory Rate 18 04/04/2025 7:12 PM EST Oxygen Saturation 100% 04/04/2025 7:12 PM EST Inhaled Oxygen Concentration - - Weight 72.6 kg (160 lb) 04/04/2025 7:12 PM EST Height 172.7 cm (5' 8 ) 04/04/2025 7:12 PM EST Body Mass Index 24.33 04/04/2025 7:12 PM EST Plan of Treatment Health Maintenance Due Date Last Done Comments Hepatitis A Vaccines (1 of 2 - Risk 2-dose series) 11/24/2006 Hepatitis B Vaccines (1 of 3 - 19+ 3-dose series) 11/24/2006 Pneumococcal Vaccine: Pediatrics (0 to 5 Years) and At-Risk Patients (6 to 49 Years) (1 of 2 - PCV) 11/24/2006 HPV Vaccines (1 - 3-dose SCD M series) 11/24/2014 Cholesterol Screening (Lipid Panel) 04/28/2022 HIV Screening 04/28/2022 Hepatitis C Screening 04/28/2022 Medicare Annual Wellness Visit 04/28/2022 Social Influencers of Health Screening 04/28/2022 Depression Screening 05/26/2024 COVID-19 Vaccine (1 - 2024-2 6 season) 2025 Influenza Vaccine (#1) 2025 DTaP,Tdap,and Td Vaccines (3 - Td or Tdap) 05/25/2033 05/25/2023, 10/16/2021 RSV Immunization Adult Patients (1 - 1-dose 75+ series) 11/24/2062 HIB Vaccines Aged Out No longer eligi ble based on patient's age to complete this topic IPV Vaccines Aged Out No longer eligi ble based on patient's age to complete this topic MMR Vaccines Aged Out No longer eligi ble based on patient's age to complete this topic Meningococcal ACWY Vaccine Aged Out N o longer eligible based on patient's age to complete this topic Meningococcal B Vaccine Aged Out No l onger eligible based on patient's age to complete this topic RSV Immunization Patients Under 20 months Aged Out No longer eligible b ased on patient's age to complete this topic Varicella Vaccines Aged Out No longer eligible based on patient's age to complete this topic Insurance MEDICARE [place]ICAID - [place] Care Teams Purifying Plant Operator Relationship Specialty Start Date End Date Physician, No Pcp PCP - General 11/21/24
--- OUTSIDE RECORDS SUMMARY | 2025-04-20 16:04 | XMS_ITS | Clinical Summary ---
Author Organization [facility] Address [address] [place] [id number] Care Team Providers Care Solution Design And Analysis Manager Name Role Phone Pcp, No Primary Care Provider Unavailabl e Allergies No known active allergies Social History Tobacco Use Types Packs/Day Years Used Date Smoking Tobacco: Never Assessed Sex and Gender Information Value Date Recorded Sex Assigned at Not on file Legal Sex Male 6:08 PM EDT Gender Identity Not on file Sexual Orientation Not on file Last Filed Vital Signs Vital Sign Reading Time Taken Comments Blood Pressure 132/90 11/30/2022 9:17 PM EDT Pulse 70 11/30/2022 9:17 PM EDT Temperature 36.8 C (98.2 F) 11/30/2022 9:16 PM EDT Respiratory Rate 18 11/30/2022 9:16 PM EDT Oxygen Saturation 97% 11/30/2022 9:16 PM EDT Inhaled Oxygen Concentration - - Weight 81.6 kg (180 lb) 11/30/2022 6:21 PM EDT Height 172.7 cm (5' 8 ) 11/30/2022 6:21 PM EDT Body Mass Index 27.37 11/30/2022 6:21 PM EDT Plan of Treatment Health Maintenance Due Date Last Done Comments Hepatitis C Screening 1987 Lipid Panel 1987 Medicare Annual Wellness Visit 11/24/2005 COVID-19 Vaccine (2024-2 6 season) 2025 08/29/2021 Influenza Vaccine (#1) 2025 Tdap and Td Vaccines Adult 10/17/2031 10/16/2021 HIB Vaccines Aged Out No longer eligi ble based on patient's age to complete this topic HPV Vaccines (No Doses Required) Completed Hepatitis A Vaccines Aged Out No long er eligible based on patient's age to complete this topic IPV Vaccines Aged Out No longer eligi ble based on patient's age to complete this topic Meningococcal Vaccine Aged Out No abdulkadir elizabeth eligible based on patient's age to complete this topic Pneumococcal Vaccine: Peds ( 0 to 5 Yrs) and At-Risk Pts (6 to 49 Yrs) Aged Out No lo nger eligible based on patient's age to complete this topic RSV <20 Months Aged Out No longer frandy gible based on patient's age to complete this topic Insurance MEDICAID [place] MED[place]ARE Care Teams Solution Design And Analysis Manager Relationship Specialty Start Date End Date Pcp, No [place] [address] PCP - General 11/30/22
--- OUTSIDE RECORDS SUMMARY | 2025-04-20 16:04 | XMS_ITS ---
Author Name [facility] Organization Unknown Encounters Encounter Type Encounter Reason Primary Diagnosis Location Date Ambulatory Alcohol abuse, uncomplicated [facility] 11/30/2022 Care Team Organization Name Specialty Phone Email Start Date End [facility] 12/01/2022 [facility] 11/30/2022 07/0 12/2022
== END 2025-04-20 13:31 | disposition home or self-care (01) ==
PROVIDERS: PCP Student in an Organized Health Care Education/Training Program; Visit Provider Student in an Organized Health Care Education/Training Program
DX: F10.90 Alcohol use, unspecified, uncomplicated (principal); F10.10 Alcohol abuse, uncomplicated; J45.909 Unspecified asthma, uncomplicated; F41.9 Anxiety disorder, unspecified; G47.9 Sleep disorder, unspecified; Z87.898 Personal history of other specified conditions; F19.90 Other psychoactive substance use, unspecified, uncomplicated

== ENCOUNTER 2025-04-25 12:37 | Outpatient (REF) | payer MEDICARE, MEDICAID, SELFPAY ==
[2025-04-25 20:55] LABS: Resp Syncy Virus RNA Qual PCR NEGATIVE (Negative); SARS COV2 PCR INHOUSE NEGATIVE (Negative)
== END 2025-04-25 12:38 | disposition home or self-care (01) ==
LOC: HO.LAB 12:37
PROVIDERS: PCP Student in an Organized Health Care Education/Training Program; Visit Provider Family Medicine
DX: J06.9 Acute upper respiratory infection, unspecified (principal); M54.42 Lumbago with sciatica, left side; J02.9 Acute pharyngitis, unspecified
CPT/HCPCS: 87637; 99212

== ENCOUNTER 2025-04-25 12:37 | Outpatient (AMB) | payer MEDICARE, MEDICAID, SELFPAY ==
[2025-04-25 12:39] VITALS: BP 123/78; PULSE 58; RESP 16; TEMP 36.6; O2SAT 99; BMI 24.9
--- NOTE | 2025-04-25 12:39 | AM.OFFWIN_ITS ---
Intake Vital Signs 04/25/25 12:39 Height 5 ft 9.25 in Weight 170 lb BMI 24.9 BP 123/78 Blood Pressure Location Lt brachial Position Sitting Respiration 16 Pulse 58 Pulse Source Pulse Oximeter Temp 98 F Temp Source Oral Pulse Oximetry (%) 99 Oxygen Delivery Method Room Air Intake Visit Reasons: EP - Cough, Congestion, Post Nasal Drip Intake Note: EP complains of having productive cough (yellow in color), runny nose, sneezing and sore throat for the last two days and lower back pain without any specific issue for the last five days. Patient Tobacco Use Status: Current everyday Tobacco user Allergies No Known Allergies Allergy (Verified 04/25/25 12:51) Medication List - Last Reconciled 04/25/25 by Emmie Umanzor MD albuterol sulfate 90 mcg/actuation (Ventolin HFA) 2 puffs inhalation Q6H PRN clonidine HCl 0.1 mg PO BID hydroxyzine HCl 50 mg PO BEDTIME Do you need a note to return to daycare/school/sports/work: No HPI HPI Comments History of Present Illness Details History of Present Illness The patient is a 39 year old individual with a past medical history of asthma, alcohol use disorder, anxiety, presenting with upper respiratory symptoms and low back pain. Acute Upper Respiratory Infection: - The patient has been experiencing symp toms for the past two days, including cough, sputum production, sore throat, and body aches. - The patient denies fever, with tempera ture readings around 98.5?F. - A close contact was recently diagnosed with croup, and the patient suspects exposure from being at the hospital with them. - The patient has been taking over-the-c ounter Mucinex for symptoms. - Reports occasional wheezing. States hi s PCP prescribed him an albuterol inhaler which he has yet to pick pulling machine tender. - Denies vomiting or diarrhea - Reports soft stools for the last few d ays but unsure if its due to recent detox. - Denies any blood in stool. Low Back Pain: - The patient reports low back pain that began about one to two weeks ago while in a treatment facility. - The pain is located in the mid-lower b ack, predominantly on the left side. - Reports occasional radiation of pain d own the left leg without numbness or weakness - There was no specific injury that init iated the pain. - The patient has not taken any medicati on for the back pain. - The patient has a history of a hip fra cture more than 10 years ago, which required being in a wheelchair for six months and which the patient feels did not heal properly. - The patient denies blood in the stool or any bowel dysfunction. No saddle anesthesia. Review of Systems Constitutional: Negative for fevers, chills HENT: Reports congestion, rhinorrhea, sore throat, Denies ear pain, ear discharge, hearing loss Respiratory: Reports cough and wheezing. Cardiac: Negative for chest pain Gastrointestinal: Reports diarrhea. Negative for nausea Musculoskeletal: Reports myalgias and back pain Neurological: Denies LE weakness or numbness Physical Exam General Appearance: Normal appearance, well developed. No acute distress ENT: External ears and ear canals normal. TM without erythema or bulging. Clear nasal drainage and post nasal drip noted. Oropharynx clear without erythema or exudate. Head: Normocephalic, atraumatic Pulmonary: No respiratory distress. Clear to auscultation bilaterally. Speaking in full sentences Cardiac: Regular rate and rhythm. No murmurs. Musculoskeletal: Moving all extremities spontaneously and against gravity. No TTP over spine, +TTP of left lumbar paraspinal soft tissue, neg straight leg test, symmetric 5/5 strength for LE, sensation intact, normal gait Mental Status: Alert and Oriented x 3 Psychiatric: Normal mood. Normal affect. [facility] Medical History (Updated 04/20/25 @ 13:43 by Cyril Cheney MD) Substance use disorder History of seizures Sleep disorder Anxiety Alcohol abuse Asthma Family History (Updated 04/20/25 @ 13:11 by Lawrence Quiroz CMA) Father FH: mental illness Substance abuse Diabetes Brother FH: mental illness Maternal Uncle FH: mental illness Substance abuse Diabetes Paternal Uncle FH: mental illness Substance abuse Diabetes Maternal Grandmother Hypertension Diabetes Paternal Grandmother Hypertension Cancer Diabetes Social History (Updated 04/20/25 @ 13:12 by Lawrence Quiroz CMA) Housing: Apartment Alcohol intake: former Patient Tobacco Use Status: Current everyday Tobacco user Cigarette Packs Per Day: 0.5 e-Cigarette/Vaping Use: Never Used Substance Use Type: Marijuana service: No Current occupational status: unemployed Cognitive needs: No Hearing needs: No Vision needs: No Physical Exam Vital Signs: Last Vital Signs Temp 98 F 04/25/25 12:39 Pulse 58 04/25/25 12:39 Resp 16 04/25/25 12:39 BP 123/78 04/25/25 12:39 Pulse Ox 99 04/25/25 12:39 Oxygen Delivery Method Room Air 04/25/25 12:39 BMI result Body Mass Index 24.9 Results AMB Rapid Strep AMB Rapid Strep Negative Last Edit by Jorge Livingston MA on 04/25/25 13:06 Assessment & Plan Assessment & Plan (1) Low back pain: Code(s): M54.50 - Low back pain, unspecified Qualifiers: Chronicity: acute Back pain laterality: left Sciatica presence: with sciatica Sciatica laterality: sciatica of left side Qualified Code(s): M54.42 - Lumbago with sciatica, left side (2) Upper respiratory infection: Code(s): J06.9 - Acute upper respiratory infection, unspecified Qualifiers: URI type: unspecified URI Qualified Code(s): J06.9 - Acute upper respiratory infection, unspecified Plan 1. Acute upper respiratory infection The patient's presentation of a cough, sore throat, and body aches for two days is consistent with a viral upper respiratory infection Low suspicion for pneumonia given clear lungs to auscultation, afebrile, and patient saturating well--no indication for CXR. Rapid strep test in the office negative Awaiting results for COVID-19, influenza, and RSV tests and will contact the patient with the results. Plan includes symptomatic treatment with fluids Mucinex as needed for cough and congestion Patient was advised to pick pulling machine tender prescribed albuterol inhaler and use it as needed for any wheezing or shortness of breath The patient is advised to return if new fevers, chest pain, or shortness of breath develop. 2. Low back pain The patient presents with acute low back pain of 1-2 weeks duration with occasional radiation down the left leg No LE weakness, saddle anesthesia, or urinary/bowel dysfunction Symptoms appear muscular in etiology. Recent lab work shows kidney function WNL. A prescription for ibuprofen 600 mg Q8 PRN was sent to his pharmacy. Advised to take with food Patient reports he has lidocaine patches at home and was advised he may use as needed. Patient was informed and verbally consented to the use of an ambient scribe for clinic note documentation during the visit. Orders: Orders SARS-CoV2/FLU/RSV Today J06.9 - Acute upper respiratory infection, unspecified AMB Rapid Strep Screen Today J02.9 - Acute pharyngitis, unspecified Medications: New ibuprofen 600 mg PO Q8H PRN 20 tabs 0RF pain Coding Level of Care Code Est Pt Level 3 (64625) Diagnoses Acute left-sided low back pain with left-sided sciatica M54.42 Chronicity: acute Back pain laterality: left Sciatica presence: with sciatica Sciatica laterality: sciatica of left side Upper respiratory tract infection, unspecified type J06.9 URI type: unspecified URI
--- OUTSIDE RECORDS SUMMARY | 2025-04-25 16:14 | XMS_ITS | Clinical Summary ---
Author Organization [facility] Address [address] [place] [address] Phone Care Team Providers Care Ecological Risk Assessor Name Role Phone Physician, No Pcp Primary Care Provider Unavaila ble Allergies No known active allergies Medications methocarbamoL (ROBAXIN) 750 mg tablet Take 1 tablet (750 mg total) by mouth 4 (four) times a day for 10 days. 40 each 11/21/2024 Active Encounters Date Type Department Care Team Description 04/04/2025 6:49 PM EST - 04/05/2025 3:06 AM EST Emergency [facility] Emergency [address] [place] [address] Noreen Barros MD Acute alcohol intoxication, uncomplicated ([facility] V24) (Primary Dx) Discharge Disposition: Home or Self Care from Last 3 Months Medical History Medical History Date Comments Asthma DX:Asthma Seizure ([facility] V24, [facility] V28) DX:Seizure ([facility]);COMMENT:1 episode at 9 years of age Social [...] Insurance MEDICARE [place]ICAID - [place] Care Teams Ecological Risk Assessor Relationship Specialty Start Date End Date Physician, No Pcp PCP - General 11/21/24
--- OUTSIDE RECORDS SUMMARY | 2025-04-25 16:14 | XMS_ITS | Clinical Summary ---
Author Organization [facility] Address [address] [place] [address] Care Team Providers Care Curling Machine Operator Name Role Phone Pcp, No Primary Care [...] topic Insurance MEDICAID [place] Care Teams Curling Machine Operator Relationship Specialty Start Date End Date Pcp, No [place] [address] PCP - General 11/30/22
== END 2025-04-25 13:30 | disposition home or self-care (01) ==
LOC: HO.HMCWIS 12:37
PROVIDERS: PCP Student in an Organized Health Care Education/Training Program; Visit Provider Family Medicine
DX: M54.42 Lumbago with sciatica, left side (principal); J06.9 Acute upper respiratory infection, unspecified

== ENCOUNTER 2025-05-06 10:23 | Outpatient (AMB) | payer MEDICARE, MEDICAID, SELFPAY ==
--- NOTE | 2025-05-06 10:24 | A.OFFPC_ITS ---
Vital Signs 05/06/25 10:27 Height 5 ft 9.25 in Weight 173 lb 4 oz BMI 25.4 BP 126/72 Blood Pressure Location Rt brachial Position Sitting Respiration 18 Pulse 84 Pulse Source Pulse Oximeter Temp 98.2 F Temp Source Oral Pulse Oximetry (%) 98 Oxygen Delivery Method Room Air Intake Visit Reasons: 2 wk - lab review Intake Note: follow up lab review Fine Hairer Required: No Accompanied by: Self / Same As Patient Allergies No Known Allergies Allergy (Verified 05/06/25 10:27) Medication List - Last Reconciled 05/06/25 by Cyril Cheney MD albuterol sulfate 90 mcg/actuation (Ventolin HFA) 2 puffs inhalation Q6H PRN clonidine HCl 0.1 mg PO BID hydroxyzine HCl 50 mg PO BEDTIME ibuprofen 600 mg PO Q8H PRN thiamine HCl (vitamin B1) 100 mg PO DAILY Tobacco use date assessed: 04/20/25 Dental Screening Dental Screen Date: 04/20/25 HPI HPI Comments History of Present Illness Details History of Present Illness The patient is a 39 year old male presenting for a follow-up visit to review lab results and discuss a common cold. Thiamine deficiency: The patient was found to have a low thiamine (vitamin B1) level of 10, with the normal range being 8 to 30. Acute nasopharyngitis: The patient reports having a common cold and is using amze-yah-mmrbozj medications and an inhaler to manage symptoms. Medications: - Inhaler, unspecified, for symptoms rel ated to his cold. - Rznn-cfb-igcbqnt medications for cold symptoms. Social History: - Substance Use: The patient's history o f alcohol consumption is noted as a potential cause for low vitamin B1 levels. Diagnostic Results: - Complete blood count (CBC): White bloo d cells, red blood cells, and hemoglobin are within normal limits. - Chemistry panel: Sodium, potassium, ca lcium, and magnesium are within normal limits. - Kidney function: Normal. - Glucose and Hemoglobin A1c: Within nor mal limits, indicating no signs of prediabetes or diabetes. - Liver function tests (Total bilirubin, AST, ALT): Within normal limits. - Lipid panel: Total protein, triglyceri clyde, total cholesterol, LDL, and HDL are within normal limits. - Vitamin B1 (Thiamine): 10 (normal rang e 8-30), which is on the low side. - Vitamin B12, Vitamin D, and Folate: Wi thin normal limits. - Thyroid function: Appears normal. - Urinalysis: Normal. - Infectious disease screening: Negative for syphilis, chlamydia, gonorrhea, hepatitis B, hepatitis C, and HIV. Past Medical History Health Maintenance - The patient has a clean bill of health based on recent lab work. - Screening for sexually transmitted inf ections, including syphilis, chlamydia, gonorrhea, hepatitis B, hepatitis C, and HIV, were all negative. - Discussed vitamin B1 supplementation f or low-normal thiamine levels. [facility] Medical History (Updated 05/06/25 @ 10:46 by Cyril Cheney MD) Common cold Thiamine deficiency Substance use disorder History of seizures Sleep disorder Anxiety Alcohol abuse Asthma Family History Father FH: mental illness Substance abuse Diabetes Brother FH: mental illness Maternal Uncle FH: mental illness Substance abuse Diabetes Paternal Uncle FH: mental illness Substance abuse Diabetes Maternal Grandmother Hypertension Diabetes Paternal Grandmother Hypertension Cancer Diabetes Social History Housing: Apartment Alcohol intake: former Patient Tobacco Use Status: Current everyday Tobacco user Cigarette Packs Per Day: 0.5 e-Cigarette/Vaping Use: Never Used Substance Use Type: Marijuana service: No Current occupational status: unemployed Cognitive needs: No Hearing needs: No Vision needs: No Questionnaire PHQ-9 Over the last 2 weeks, how often have you been bothered by any of the following problems? 1. Little interest or pleasure in doing things: several days 2. Feeling down, depressed, or hopeless: several days 3. Trouble falling or staying asleep, or sleeping too much: several days 4. Feeling tired or having little energy: several days 5. Poor appetite or overeating: several days 6. Feeling bad about yourself - or that you are a failure or have let yourself or your family down: several days 7. Trouble concentrating on things, such as reading the newspaper or watching television: several days 8. Moving or speaking so slowly that other people could have noticed. Or the opposite - being so fidgety or restless that you have been moving around a lot more than usual: not at all 9. Thoughts that you would be better off or of hurting yourself in some way: not at all Total score: 7 Depression Screening Interpretation: Negative Depression Screening Done: Yes 27694 - PHQ-9 Billing: Yes Source: Developed by Drs. Aayush De Jesus, Cynthia Castellon, Royal Basurto and colleagues, with an educational kaia from [employer]. Thrive Questionnaire Date Thrive assessed: 04/20/25 I am a: Patient What is your living situation today?: I have a steady place to live Within the past 12 months, did the food you bought not last and you didn't have the money to get more?: Never true Within the past 12 months, did you worry whether your food would run out before you got money to buy more?: Never true Do you have trouble paying for medicines?: Yes Do you have trouble getting transportation to medical appointments?: No Do you have trouble paying your heating and electricity bill?: I choose not to answer this question Do you have trouble taking care of your child, family member or friend?: No Do you have trouble with day-to-day activities such as bathing, preparing meals, shopping, managing finances, etc.?: No Are you currently unemployed and looking for a job?: Yes Are you interested in more education?: No Currently or been in a relationship where the following occur: No concerns reported THRIVE Score: 0 AUDIT C Alcohol Use Questionnaire (AUDIT-C) 1. How often do you have a drink containing alcohol?: 4 or more times a week 2. How many drinks containing alcohol do you have on a typical day when you are drinking?: 10 or more 3. How often do you have six or more drinks on one occasion?: Daily or almost daily Total Score: 12 TATIANA-7 AMB Questionnaire TATIANA-7 Date TATIANA - 7 assessed: 04/20/25 Source: Developed by Drs. Aayush De Jesus, Cynthia Castellon, Royal Basurto and colleagues, with an educational kaia from [employer]. Review of Systems Narrative Review of Systems - General: Reports having a cold. - HEENT: Reports difficult swallowing (odynophagia) associated with cold. 10-point ROS reviewed and negative except as noted in HPI Physical exam (Primary Care) Vital Signs: Last Vital Signs Temp 98.2 F 05/06/25 10:27 Pulse 84 05/06/25 10:27 Resp 18 05/06/25 10:27 BP 126/7 L 05/06/25 10:27 Pulse Ox 98 05/06/25 10:27 Oxygen Delivery Method Room Air 05/06/25 10:27 BMI result Body Mass Index 25.4 Tobacco/Smoking Status: Tobacco use Status Tobacco use date assessed 04/20/25 05/06/25 10:30 Patient Tobacco Use Status Current everyday Tobacco 05/06/25 10:30 e-Cigarette/Vaping Use Never Used 05/06/25 10:30 PHQ-9: PHQ-9 Score PHQ-9: Total score 7 05/06/25 10:45 Depression Screening Interpretation: Negative Thrive Assessment: Date of Thrive Assessment Date Thrive assessed 04/20/25 05/06/25 10:30 Currently or been in a relationship where the following occur: No concerns reported Narrative Physical Exam General: Well-appearing, in no acute distress. Vital signs: Within normal limits. HEENT: Normocephalic, atraumatic. PERRLA, EOMI. Conjunctiva clear, sclera anicteric. Oropharynx clear, mucous membranes moist. TMs intact bilaterally. Neck: Supple, no lymphadenopathy, no thyromegaly, no JVD or carotid bruits. Cardiovascular: RRR, normal S1/S2, no murmurs, rubs, or gallops. Peripheral pulses 2+ and symmetric. No edema. Respiratory: Lungs clear to auscultation bilaterally, no wheezes, rales, or rhonchi. Normal effort. Abdomen: Soft, non-tender, non-distended. Normoactive bowel sounds. No hepatosplenomegaly, no masses. MSK: Full range of motion, no joint swelling or deformity. Normal gait. Skin: Warm, dry, intact. No rashes, lesions, or pallor. Neuro: Alert and oriented x3. Cranial nerves II-XII intact. Strength 5/5 throughout. Sensation intact. Reflexes 2+ symmetric. Normal coordination and gait. Psych: Appropriate mood and affect. Normal judgment and insight. Coding Level of Care Code Est Pt Level 3 (36383) Add On Problem Visit Only Diagnoses Thiamine deficiency E51.9 Alcohol abuse F10.10 Common cold J00 Anxiety F41.9 Additional Codes PHQ-9 - 50676 - PHQ-9 Billing: Yes ([id number]) Assessment & Plan Assessment & Plan (1) Thiamine deficiency: Code(s): E51.9 - Thiamine deficiency, unspecified Category: Medical (2) Alcohol abuse: Code(s): F10.10 - Alcohol abuse, uncomplicated Category: Medical (3) Common cold: Code(s): J00 - Acute nasopharyngitis [common cold] Category: Medical (4) Anxiety: Code(s): F41.9 - Anxiety disorder, unspecified Category: Medical Plan Consent Patient was informed and verbally consented to the use of an ambient scribe for clinic note documentation during this visit. Plan 1. Thiamine Deficiency - The patient's vitamin B1 (thiamine) level is on the low side at 10 (normal range 8-30), which can be associated with alcohol consumption. - A prescription for a daily tqbx-inh-iwivxlc vitamin B1 supplement will be sent to the patient's pharmacy. - A three-month supply will be prescribed. - Plan to recheck vitamin B1 levels after three months of supplementation to ensure they have increased. 2. Lab Results Review - The patient's recent lab results were reviewed and were found to be largely within normal limits. - Results indicate good overall health, with no evidence of diabetes, and normal kidney and liver function. - Screening for STIs including syphilis, chlamydia, gonorrhea, hepatitis B, hepatitis C, and HIV were all negative. 3. Acute Nasopharyngitis - The patient is managing symptoms of a common cold with rqjq-ven-gvimpcz medications and an inhaler. - Continue current self-management. Discussion Notes I reviewed the patient's lab results with him, which were reassuring and showed a good clean bill of health. I noted that his vitamin B1 (thiamine) was on the low side of normal, and we discussed that this can be associated with alcohol intake. I recommended starting an qrya-jdv-nyxcvaq vitamin B1 supplement, and I will send a three-month prescription to his pharmacy, after which we will recheck his levels. I encouraged him to continue on his current path and reminded him to reach out if he needs any help or resources. The patient had no further questions or concerns. Patient Instructions - Take one Vitamin B1 (thiamine) tablet daily. - A three-month supply of Vitamin B1 has been sent to your pharmacy. - You will need to have your vitamin levels checked again in about three months. - Your recent lab tests, including for STIs, were all normal, and you have a good clean bill of health. - Continue your current path for maintaining your health. - Please contact the office if you need any help or resources. Medical Decision Making The patient presented for a review of his recent laboratory studies. Overall, his results are excellent, showing normal complete blood count, kidney function, liver function, electrolytes, and lipid panel. His glucose and A1c are normal, ruling out diabetes mellitus. Screenings for HIV, hepatitis, and other STIs were negative. The only notable finding is a low-normal thiamine (vitamin B1) level of 10. Given that low thiamine can be associated with alcohol use, and to prevent deficiency, I have prescribed a three-month course of daily oral thiamine supplementation. The plan is to replete his levels and then re-evaluate with repeat lab work in three months to ensure an adequate response. The patient is otherwise in good health and was encouraged to continue his current lifestyle. Total Time Statement 20 min Total time spent caring for the patient today includes pre-visit chart review, documentation, review of laboratory and diagnostic imaging results, medication reconciliation, medically necessary evaluation, counseling on diagnoses, care coordination, ordering appropriate tests and medications, review of tests performed by other providers, reporting test results to the patient, and communication with other healthcare providers. Medications: New thiamine HCl (vitamin B1) 100 mg PO DAILY 90 caps 0RF clonidine HCl 0.1 mg PO BID 120 tabs 0RF
[2025-05-06 10:27] VITALS: BP 126/72; PULSE 84; RESP 18; TEMP 36.8; O2SAT 98; BMI 25.4
== END 2025-05-06 10:41 | disposition home or self-care (01) ==
LOC: HO.HMCFMS 10:23
PROVIDERS: PCP Student in an Organized Health Care Education/Training Program; Visit Provider Student in an Organized Health Care Education/Training Program
DX: E51.9 Thiamine deficiency, unspecified (principal); F10.10 Alcohol abuse, uncomplicated; J00 Acute nasopharyngitis [common cold]; F41.9 Anxiety disorder, unspecified

== ENCOUNTER → 2025-05-06 10:23 | Outpatient (BNVA) | payer MEDICARE, MEDICAID, SELFPAY | PROVIDERS: PCP Student in an Organized Health Care Education/Training Program; Visit Provider Student in an Organized Health Care Education/Training Program | DX: Z71.2 Person consulting for explanation of examination or test findings (principal); E51.9 Thiamine deficiency, unspecified; F10.10 Alcohol abuse, uncomplicated; J00 Acute nasopharyngitis [common cold]; F41.9 Anxiety disorder, unspecified; Z13.31 Encounter for screening for depression | CPT/HCPCS: 96127; 99212 ==